=== PATIENT | male | born 1965 | race Caucasian/White ===

== ENCOUNTER 2021-07-26 19:55 | Emergency (ER) | payer BC ==
[~2021-07-26] VITALS: Ht 177.8 cm; Wt 80.7 kg
[2021-07-26] MEDS ORDERED: KETOROLAC TROMETHAMINE 30 MG/ML VIAL IV STA (20:47)
[2021-07-26] MEDS ORDERED: SODIUM CHLORIDE 0.9% 1000ML 1,000 ML IV ONE (21:10)
[2021-07-26] MEDS ORDERED: SODIUM CHLORIDE 0.9% 1000ML 1,000 ML ONE (21:14)
[2021-07-26] MEDS ORDERED: IOPAMIDOL 370 MG/ML 200 ML INFUS..BTL INJ ONE (21:19)
[2021-07-26] MEDS ORDERED: SODIUM CHLORIDE 0.9% 50ML 50 ML ONE (21:19)
[2021-07-26] MEDS ORDERED: KETOROLAC TROME10 MG PO (23:02)
[2021-07-26] MEDS ORDERED: ULTRAM 50MG50 MG PO (23:03)
== END 2021-07-26 23:30 | disposition home or self-care (01) ==
LOC: FSED 20:03
DX: R68.84 Jaw pain (principal); M26.602 Left temporomandibular joint disorder, unspecified; H92.02 Otalgia, left ear; R20.0 Anesthesia of skin; F17.210 Nicotine dependence, cigarettes, uncomplicated
CPT/HCPCS: 70450; 70487; 80053; 85025; 99282; J7030; Q9967